=== PATIENT | male | born 2000 | race Caucasian/White ===

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

== ENCOUNTER 2022-05-13 10:06 | Emergency (ER) | payer MEDICAID ==
[~2022-05-13] VITALS: Ht 170.2 cm; Wt 84.1 kg
[2022-05-13 10:12] VITALS: BP 145/90
[2022-05-13] MEDS ORDERED: PANT20TA2 PO (10:25)
== END 2022-05-13 10:52 | disposition home or self-care (01) ==
LOC: ER 10:06
DX: K21.9 Gastro-esophageal reflux disease without esophagitis (principal); Z91.013 Allergy to seafood; Z79.899 Other long term (current) drug therapy
CPT/HCPCS: 93005; 99283